=== PATIENT | male | born 1990 | race Caucasian/White ===

== ENCOUNTER 2016-11-06 01:45 | Emergency (ER) | payer SELFPAY ==
[~2016-11-06] VITALS: Ht 180.3 cm; Wt 93.0 kg
[2016-11-06] MEDS ORDERED: ASPIRIN 81 MG CHEW (CHILDREN'S ASA) PO ONE (02:15)
[2016-11-06] MEDS ORDERED: ASPIRIN 81 MG CHEW (CHILDREN'S ASA) ONE (02:16)
--- NOTE | 2016-11-06 02:28 | ED Cardiac General ---
History of Present Illness General Chief Complaint: Respiratory Problems Stated Complaint: POSS ANXIETY ATTACK,SOB,CP,POSS COLD-COUGHING Nursing Triage Note: Pt presents to ED with c/o SOA x 1 hr, pt is tearful in triage, reports he was at the bar [employer], had approx 5 beers and 1 shot, pt states the SOA began while there and he collapsed at bar. Source: patient History of Present Illness Time seen by provider: 02:05 Initial Comments PT ARRIVES VIA POV STATES HE WAS DRINKING AT A BAR [employer] (HAD APPROXIMATELY 10 DRINKS TONIGHT-- WHICH IS NORMAL FOR PATIENT, DRINKS THIS MUCH SEVERAL NIGHTS/WEEK) --STATES ALL OF A SUDDEN HE "DIDN'T FEEL RIGHT" "FELT WEIRD" AND "WHOLE BODY FELT UNCOMFORTABLE", THEN HE HAD A SUDDEN ONSET OF CHEST PAIN ( "LIKE SOMEONE WAS STABBING ME OR PUNCHING ME IN THE CHEST"), STATES THEN HE "COLLAPSED--DROPPED DOWN ON THE GROUND" BUT DID NOT PASS OUT AND NO INJURY, THEN HE STARTED HAVING TROUBLE BREATHING STATES THIS BEGAN APPROXIMATELY 1 1/2 HOURS AGO, AND LASTED APPROXIMATELY AN HOUR--NO CHEST PAIN OR SHORTNESS OF BREATH NOW NO SWEATS + PALPITATIONS--FELT LIKE HIS HEART WAS BEATING HARD AND FAST, BUT NOT NOW NO NAUSEA/VOMITING PT HAS HAD A COUGH FOR THE LAST 4 DAYS, WITH BROWN SPUTUM--STATES OCCURS ONLY IN THE MORNING WHEN HE WAKES UP, THEN NONE FOR THE REST OF THE DAY NO FEVER NO SWELLING IN LEGS/ FEET OR PAIN IN CALVES. NO RECENT TRAVEL, OR PROLONGED SITTING, ETC. NO HISTORY OF SIMILAR PT DENIES USING ANY DRUGS PCP: ENRIQUE IN [facility] Allergies and Home Medications Allergies Coded Allergies: No Known Drug Allergies (Unverified , 11/06/16) Review of Systems Constitutional: see HPI EENTM: No Symptoms Reported Respiratory: See HPI, Cough, Shortness of Air Cardiovascular: See HPI, Chest Pain, Palpitations, Denies Syncope Gastrointestinal: No Symptoms Reported, Denies Abdominal Pain, Denies Nausea, Denies Vomiting Genitourinary: No Symptoms Reported Musculoskeletal: no symptoms reported Skin: no symptoms reported Psychiatric/Neurological: See HPI, Anxiety, Other (CRYING ON ARRIVAL TO ER) Endocrine: No Symptoms Reported Hematologic/Lymphatic: No Symptoms Reported Past Iobjohs-Dlpgao-Gnkzcs Hx Patient Social History Alcohol Use: Regular Use (AT LEAST 10 DRINKS / NIGHT, SEVERAL NIGHTS A WEEK) Recreational Drug Use: Yes (THC) Smoking Status: Current Everyday Smoker (1 PPD) Type Used: Cigarettes 2nd Hand Smoke Exposure: No Recent Foreign Travel: No Contact w/Someone Who Travel: No Recent Infectious Disease Expo: No Immunizations Up To Date Tetanus Booster (TDap): Unknown Seasonal Allergies Seasonal Allergies: No Surgeries HX Surgeries: Yes ([facility] ) Surgeries: Abdominal Respiratory Hx Respiratory Disorders: No Cardiovascular Hx Cardiac Disorders: No Neurological Hx Neurological Disorders: No Reproductive System Sexually Transmitted Disease: No HIV/AIDS: No Genitourinary Hx Genitourinary Disorders: No Gastrointestinal Hx Gastrointestinal Disorders: Yes (INGUINAL HERNIA REPAIR 07/2016) Gastrointestinal Disorders: Abdominal Hernia Musculoskeletal Hx Musculoskeletal Disorders: No Endocrine Hx Endocrine Disorders: No HEENT HX ENT Disorders: No Cancer Hx Cancer: No Psychosocial Hx Psychiatric Problems: No Integumentary HX Skin/Integumentary Disorder: No Blood Transfusions Hx Blood Disorders: No Adverse Reaction to a Blood Tr: No Physical Exam Vital Signs Vital Sign - Last 12Hours 11/06/16 11/06/16 01:55 02:15 Temp 98.7 Pulse 92 Resp 18 B/P (MAP) 153/90 Pulse Ox 97 O2 Delivery Room Air O2 Flow Rate 2.00 Capillary Refill : Less Than 3 Seconds General Appearance: No Apparent Distress, WD/WN, Anxious (SOMEWHAT TEARFUL) HEENT: PERRL/EOMI Neck: Full Range of Motion, Normal Inspection, Non Tender, Supple, No Carotid Bruit, No JVD Respiratory: Chest Non Tender, Normal Breath Sounds, No Accessory Muscle Use, No Respiratory Distress Cardiovascular: No Edema, No Gallop, No JVD, No Murmur, Normal Peripheral Pulses, Tachycardia (MILD) Gastrointestinal: Normal Bowel Sounds, No Organomegaly, No Pulsatile Mass, Non Tender, Soft Extremity: Normal Capillary Refill, Normal Inspection, Normal Range of Motion, Non Tender, No Calf Tenderness, No Pedal Edema Neurologic/Psychiatric: Alert, Oriented x3, No Motor/Sensory Deficits, 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 Norm as Tested Skin: Normal Color, Warm/Dry, No Rash Progress/Results/Core Measures Results/Orders Lab Results Laboratory Tests Test 11/06/16 02:25 11/06/16 02:47 11/06/16 03:05 Range/Units White Blood Count 20.0 H 4.3-11.0 10^3/uL Red Blood Count 5.14 4.35-5.85 10^6/uL Hemoglobin 15.6 13.3-17.7 G/DL Hematocrit 47 40-54 % Mean Corpuscular Volume 91 80-99 FL Mean Corpuscular Hemoglobin 30 25-34 PG Mean Corpuscular Hemoglobin Concent 33 32-36 G/DL Red Cell Distribution Width 12.6 10.0-14.5 % Platelet Count 193 130-400 10^3/uL Mean Platelet Volume 10.7 H 7.4-10.4 FL Neutrophils (%) (Auto) 83 H 42-75 % Lymphocytes (%) (Auto) 10 L 12-44 % Monocytes (%) (Auto) 6 0-12 % Eosinophils (%) (Auto) 1 0-10 % Basophils (%) (Auto) 0 0-10 % Neutrophils # (Auto) 16.6 H 1.8-7.8 X 10^3 Lymphocytes # (Auto) 1.9 1.0-4.0 X 10^3 Monocytes # (Auto) 1.2 H 0.0-1.0 X 10^3 Eosinophils # (Auto) 0.2 0.0-0.3 10^3/uL Basophils # (Auto) 0.0 0.0-0.1 10^3/uL Neutrophils % (Manual) 76 % Lymphocytes % (Manual) 14 % Monocytes % (Manual) 6 % Eosinophils % (Manual) 1 % Basophils % (Manual) 0 % Band Neutrophils 0 % Reactive Lymphocytes 3 % Blood Morphology Comment NORMAL Prothrombin Time 12.6 12.2-14.7 SEC INR Comment 1.0 0.8-1.4 Activated Partial Thromboplast Time 28 24-35 SEC Sodium Level 146 H 135-145 MMOL/L Potassium Level 3.6 3.6-5.0 MMOL/L Chloride Level 112 H 98-107 MMOL/L Carbon Dioxide Level 22 21-32 MMOL/L Anion Gap 12 5-14 MMOL/L Blood Urea Nitrogen 10 7-18 MG/DL Creatinine 0.87 0.60-1.30 MG/DL Estimat Glomerular Filtration Rate > 60 BUN/Creatinine Ratio 11 Glucose Level 106 H 70-105 MG/DL Calcium Level 9.3 8.5-10.1 MG/DL Magnesium Level 2.6 H 1.8-2.4 MG/DL Total Bilirubin 0.3 0.1-1.0 MG/DL Aspartate Amino Transf (AST/SGOT) 34 5-34 U/L Alanine Aminotransferase (ALT/SGPT) 32 0-55 U/L Alkaline Phosphatase 51 40-136 U/L Total Creatine Kinase 422 H 30-200 U/L Creatine Kinase MB 3.5 <6.6 NG/ML Troponin I < 0.30 <0.30 NG/ML B-Type Natriuretic Peptide 11.1 <100.0 PG/ML Total Protein 7.1 6.4-8.2 G/DL Albumin 4.7 H 3.2-4.5 G/DL Serum Alcohol 220 H <10 MG/DL Blood Gas Puncture Site R RAD Blood Gas Patient Temperature 98.7 Arterial Blood pH 7.36 L 7.37-7.43 Arterial Blood Partial Pressure CO2 39 35-45 MMHG Arterial Blood Partial Pressure O2 89 79-93 MMHG Arterial Blood HCO3 22 L 23-27 MMOL/L Arterial Blood Total CO2 22.9 21.0-31.0 MMOL/L Arterial Blood Oxygen Saturation 98 94-100 % Arterial Blood Base Excess -2.8 L -2.5-2.5 MMOL/L Remi Test YES-POS Blood Gas Ventilator Setting NO Blood Gas Inspired Oxygen 2L Urine Color YELLOW Urine Clarity CLEAR Urine pH 7 5-9 Urine Specific [place] 1.010 L 1.016-1.022 Urine Protein NEGATIVE NEGATIVE Urine Glucose (UA) NEGATIVE NEGATIVE Urine Ketones NEGATIVE NEGATIVE Urine Nitrite NEGATIVE NEGATIVE Urine Bilirubin NEGATIVE NEGATIVE Urine Urobilinogen NORMAL NORMAL MG/DL Urine Leukocyte Esterase NEGATIVE NEGATIVE Urine RBC (Auto) NEGATIVE NEGATIVE Urine RBC NONE /HPF Urine WBC NONE /HPF Urine Crystals NONE /LPF Urine Bacteria NEGATIVE /HPF Urine Casts NONE /LPF Urine Mucus NEGATIVE /LPF Urine Culture Indicated NO Urine Opiates Screen POSITIVE H NEGATIVE Urine Oxycodone Screen NEGATIVE NEGATIVE Urine Methadone Screen NEGATIVE NEGATIVE Urine Propoxyphene Screen NEGATIVE NEGATIVE Urine Barbiturates Screen NEGATIVE NEGATIVE Ur Tricyclic Antidepressants Screen NEGATIVE NEGATIVE Urine Phencyclidine Screen NEGATIVE NEGATIVE Urine Amphetamines Screen NEGATIVE NEGATIVE Urine Methamphetamines Screen NEGATIVE NEGATIVE Urine Benzodiazepines Screen NEGATIVE NEGATIVE Urine Cocaine Screen NEGATIVE NEGATIVE Urine Cannabinoids Screen NEGATIVE NEGATIVE Micro Results Microbiology 11/06/16 Influenza Types A,B Antigen (JAYCEE) - Final, Complete My Orders Orders - ARACELI GEORGES DO Saline Lock/Iv-Start (11/06/16 02:15) Ekg Tracing (11/06/16 02:15) O2 (11/06/16 02:15) Monitor-Rhythm Ecg Trace Only (11/06/16 02:15) Alcohol (11/06/16 02:15) Arterial Blood Gas (11/06/16 02:15) BNP (11/06/16 02:15) Cbc With Automated Diff (11/06/16 02:15) Comprehensive Metabolic Panel (11/06/16 02:15) Creatine Kinase (11/06/16 02:15) Creatine Kinase Mb (11/06/16 02:15) Drug Screen Stat (Urine) (11/06/16 02:15) Magnesium (11/06/16 02:15) Protime With Inr (11/06/16 02:15) Partial Thromboplastin Time (11/06/16 02:15) Troponin I (11/06/16 02:15) Ua Culture If Indicated (11/06/16 02:15) Blood Culture (11/06/16 02:15) Influenza A And B Antigens (11/06/16 02:15) Chest Pa/Lat (2 View) (11/06/16 02:15) Aspirin Chewable Tablet (Baby Aspirin Ch (11/06/16 02:15) Aspirin Chewable Tablet (Baby Aspirin Ch (11/06/16 02:16) Ct Angio Chest W (11/06/16 02:20) Manual Differential (11/06/16 02:25) Albuterol/Ipra Inhalation Soln (Duoneb I (11/06/16 04:30) Dexamethasone Injection (Decadron Inject (11/06/16 04:30) Rt Request For Service (11/06/16 04:17) Svn Sm Volume Nebulizer Rt-Rfs (11/06/16 04:17) Methylprednisolone Sod Succ (Solu-Medrol (11/06/16 04:30) Ceftriaxone Injection (Rocephin Injectio (11/06/16 04:30) Ceftriaxone Injection (Rocephin Injectio (11/06/16 04:29) Ns (Ivpb) (Sodium Chloride 0.9% Ivpb Bag (11/06/16 04:30) Dexamethasone Pf Injection (Decadron Pf (11/06/16 04:32) Iohexol Injection (Omnipaque 350 Mg/Ml 1 (11/06/16 04:45) Ns (Ivpb) (Sodium Chloride 0.9% Ivpb Bag (11/06/16 04:45) Medications Given in ED Current Medications Medications Dose Ordered Sig/Marian Route Start Time Stop Time Status Last Admin Dose Admin Albuterol/ Ipratropium 3 ml ONCE ONCE INH 11/06/16 04:30 11/06/16 04:31 UNV 11/06/16 04:38 3 ML Aspirin 324 mg ONCE ONCE PO 11/06/16 02:15 11/06/16 02:20 DC 11/06/16 02:21 324 MG Ceftriaxone Sodium 1000 mg/ Sodium Chloride 50 ml @ 100 mls/hr ONCE ONCE IV 11/06/16 04:30 11/06/16 04:59 UNV 11/06/16 04:35 100 MLS/HR Dexamethasone Sodium Phosphate 10 mg STK-MED ONCE .ROUTE 11/06/16 04:32 11/06/16 04:36 DC 11/06/16 04:39 20 MG Iohexol 150 ml ONCE ONCE IV 11/06/16 04:45 11/06/16 04:46 DC 11/06/16 04:45 125 ML Methylprednisolone Sodium Succinate 125 mg ONCE ONCE IVP 11/06/16 04:30 11/06/16 04:31 UNV 11/06/16 04:35 125 MG Sodium Chloride 100 ml ONCE ONCE IV 11/06/16 04:45 11/06/16 04:46 DC 11/06/16 04:45 80 ML Vital Signs/I&O Vital Sign - Last 12Hours 11/06/16 11/06/16 11/06/16 01:55 02:15 04:41 Temp 98.7 Pulse 92 Resp 18 B/P (MAP) 153/90 Pulse Ox 97 97 99 O2 Delivery Room Air Nasal Cannula O2 Flow Rate 2.00 2.00 Blood Pressure Mean: 111 Progress Note : Progress Note O2 SATS DROP TO 86-87% ON ROOM AIR DURING EXAM--PLACED ON O2 AT 2L/NC AND SATS UP TO 99% UNEVENTFUL ER STAY--ASYMPTOMATIC FOR REMAINDER OF ER STAY PT GIVEN NEBULIZER TREATMENT, WITH INCREASED AERATION NOTED POST TREATMENT. STATES HE FEELS LIKE HE CAN TAKE A DEEPER BREATH AFTER NEB TX. REMOVED O2 AND SATS STAYED 97-99% ON ROOM AIR FOR REMAINDER OF ER STAY ECG Initial ECG Impression Time: 02:22 Initial ECG Rate: 1-1 Initial ECG Rhythm: Normal Sinus Initial ECG Impression: Nonspecific Changes Initial ECG Comparisson: No Previous ECG Available Diagnostic Imaging Comments CXR--NO ACUTE PROCESS, PENDING RADIOLOGIST REVIEW CT CHEST ANGIOGRAM--NO P.E., NON-SPECIFIC FINDINGS OF MINIMAL/SUBTLE GROUND GLASS OPACITIES IN BILATERAL LUNGS PERIPHERALLY. PER [facility] VIA FAX @ [phone] Reviewed: Reviewed by Me Departure Impression Impression: Primary Impression: BRONCHITIS WITH HYPOXIA Additional Impressions: Alcohol intoxication Leukocytosis TRANSIENT CHEST PAIN AND DYSPNEA ACTIVE SMOKER Disposition: HOME, SELF-CARE Condition: Improved Departure-Patient Inst. Referrals: NO,LOCAL PHYSICIAN (PCP) Primary Care Physician Patient Instructions: Acute Bronchitis, Adult (DC), Quitting Smoking for Teens and Young Adults, Smoking: Not Just Harmful to Your Lungs and Heart Add. Discharge Instructions: [facility] DM FOR COUGH TYLENOL AND MOTRIN NEEDED FOR PAIN OR FEVER LOTS OF CLEAR LIQUIDS--NO ALCOHOL NO SMOKING FOLLOW UP WITH DRJeanmarie OF [facility] IN 2-3 DAYS FOR FURTHER CARE RETURN TO ER IF WORSE All discharge instructions reviewed with patient and/or family. Voiced understanding. Scripts Methylprednisolone (Medrol) 4 Mg Tab.ds.pk 4 MG PO UD, #1 PKG Prov: ARACELI GEORGES DO 11/06/16 Cefdinir (Cefdinir) 300 Mg Capsule 300 MG PO BID for FOR INFECTION, #20 CAP Prov: ARACELI GEORGES DO 11/06/16 Albuterol Sulfate (PROAIR HFA) 1 Puff Puff 2 PUFF IH Q4H for BREATHING, #1 GM Prov: ARACELI GEORGES DO 11/06/16 ARACELI GEORGES DO Nov 06, 2016 02:28
[2016-11-06 02:32] LABS: BASOPHILS % (AUTO) 0 % (0-10); EOSINOPHILS # (AUTO) 0.2 10^3/uL (0.0-0.3); EOSINOPHILS % (AUTO) 1 % (0-10); LYMPHOCYTES # (AUTO) 1.9 X 10^3 (1.0-4.0); LYMPHOCYTES % (AUTO) 10 % (12-44); MEAN CORPUSCULAR HEMOGLOBIN 30 PG (25-34); MEAN CORPUSCULAR HGB CONC 33 G/DL (32-36); MEAN CORPUSCULAR VOLUME 91 FL (80-99); MEAN PLATELET VOLUME 10.7 FL (7.4-10.4); MONOCYTES # (AUTO) 1.2 X 10^3 (0.0-1.0); MONOCYTES % (AUTO) 6 % (0-12); NEUTROPHILS # (AUTO) 16.6 X 10^3 (1.8-7.8); NEUTROPHILS % (AUTO) 83 % (42-75); PLATELET COUNT 193 10^3/uL (130-400); RED BLOOD COUNT 5.14 10^6/uL (4.35-5.85); RED CELL DISTRIBUTION WIDTH 12.6 % (10.0-14.5)
[2016-11-06 02:45] LABS: PROTHROMBIN TIME PATIENT 12.6 SEC (12.2-14.7)
[2016-11-06 02:51] LABS: BAND NEUTROPHILS 0 %; BASOPHILS % (MANUAL) 0 %; EOSINOPHILS % (MANUAL) 1 %; LYMPHOCYTES % (MANUAL) 14 %; NEUTROPHILS % (MANUAL) 76 %; REACTIVE LYMPHOCYTES 3 %
[2016-11-06 02:56] LABS: ABG BASE EXCESS -2.8 MMOL/L (-2.5-2.5); ABG HCO3 22 MMOL/L (23-27); ABG OXYGEN SATURATION 98 % (94-100); ABG PCO2 39 MMHG (35-45); ABG PH 7.36 (7.37-7.43); ABG PO2 89 MMHG (79-93); ABG TCO2 22.9 MMOL/L (21.0-31.0)
[2016-11-06 02:57] LABS: ALANINE AMINOTRANSFERASE 32 U/L (0-55); ALBUMIN 4.7 G/DL (3.2-4.5); ALCOHOL 220 MG/DL (<10); ANION GAP 12 MMOL/L (5-14); ASPARTATE AMINO TRANSFERASE 34 U/L (5-34); BILIRUBIN,TOTAL 0.3 MG/DL (0.1-1.0); BLOOD UREA NITROGEN 10 MG/DL (7-18); BUN/CREATININE RATIO 11; CALCIUM 9.3 MG/DL (8.5-10.1); CARBON DIOXIDE 22 MMOL/L (21-32); CHLORIDE 112 MMOL/L (98-107); CREATINE KINASE 422 U/L (30-200); CREATININE SERUM 0.87 MG/DL (0.60-1.30); GFR ESTIMATED > 60; GLUCOSE 106 MG/DL (70-105); MAGNESIUM 2.6 MG/DL (1.8-2.4); POTASSIUM 3.6 MMOL/L (3.6-5.0); SODIUM 146 MMOL/L (135-145); TOTAL PROTEIN 7.1 G/DL (6.4-8.2)
[2016-11-06 02:57] LABS: ALLENS TEST YES-POS; PATIENT TEMP 98.7
[2016-11-06 03:04] LABS: TROPONIN I < 0.30 NG/ML (<0.30)
[2016-11-06 03:12] LABS: BILIRUBIN,URINE NEGATIVE (NEGATIVE); KETONES,URINE NEGATIVE (NEGATIVE); LEUKOCYTE ESTERASE ,URINE NEGATIVE (NEGATIVE); NITRITE,URINE NEGATIVE (NEGATIVE); PH,URINE 7 (5-9); PROTEIN,URINE NEGATIVE (NEGATIVE); UROBILINOGEN,URINE NORMAL (NORMAL)
[2016-11-06] MEDS ORDERED: cefTRIAXone 1 GM (ROCEPHIN) VIAL ONE (04:29)
[2016-11-06] MEDS ORDERED: NS (IVPB) 50 ML ONE (04:30)
[2016-11-06] MEDS ORDERED: cefTRIAXone INJECTION 1,000 MG in NS (IVPB) 50 ML IV ONE (04:30)
[2016-11-06] MEDS ORDERED: methylPREDNISolone 125 MG (Solu-MEDROL) VIAL IVP ONE (04:30)
[2016-11-06] MEDS ORDERED: RT-ALBUTEROL/IPRATROPIUM 3 ML (DUONEB) VIAL INH ONE (04:30)
[2016-11-06] MEDS ORDERED: DEXAMETHASONE 4 MG/ML SDV (DECADRON) IH ONE (04:30)
[2016-11-06] MEDS ORDERED: DEXAMETHASONE PF 10 MG/ML (DECADRON) VIAL ONE (04:32)
[2016-11-06] MEDS ORDERED: IOHEXOL 350 MG/ML 150 ML (OMNIPAQUE 350) VIAL IV ONE (04:45)
[2016-11-06] MEDS ORDERED: NS 100 ML (IVPB) BAG IV ONE (04:45)
[2016-11-06] MEDS ORDERED: METH4TAB PO (05:11)
[2016-11-06] MEDS ORDERED: CEFD300C3 PO (05:11)
[2016-11-06] MEDS ORDERED: RT-ALBUINH IH (05:11)
[2016-11-06 05:58] VITALS: BP 143/70
--- NOTE | 2016-11-06 06:54 | Diagnostic Imaging Report ---
PROCEDURE: CT angiography of the chest with contrast. TECHNIQUE: Multiple contiguous axial images were obtained through the chest after uneventful bolus administration of intravenous contrast. Reconstructed CTA MIP acquisitions were also performed. INDICATION: Shortness of breath and syncope. FINDINGS: There are scattered small nonspecific areas of groundglass infiltrates in the lungs bilaterally. There is no pleural or pericardial fluid. There is no pneumothorax. The heart size is normal. Thoracic aorta is normal in caliber without evidence of dissection. There is no pathologically enlarged adenopathy in the chest. There are no filling defects seen within the pulmonary arteries to suggest pulmonary embolism. The visualized intra-abdominal structures are unremarkable. The osseous structures are unremarkable. IMPRESSION: No evidence of pulmonary embolism or aortic dissection. Scattered small areas of groundglass opacities in the lungs bilaterally particularly in the periphery. This is nonspecific, however, may reflect some air trapping, atypical pneumonia or less likely edema. Recommend clinical correlation. No other acute abnormality in the chest Dictated by: Dictated on workstation # [id number]
--- NOTE | 2016-11-06 07:21 | Diagnostic Imaging Report ---
INDICATION: Shortness of breath. PA and lateral views of chest were obtained. FINDINGS: The heart size, mediastinal configuration, and pulmonary vascularity are within normal limits. There is no pleural effusion, pneumothorax, or pneumonia. The osseous structures are unremarkable. IMPRESSION: No acute cardiopulmonary abnormality. Dictated by: Dictated on workstation # [id number]
== END 2016-11-06 05:17 | disposition home or self-care (01) ==
LOC: EDUNIT# 01:45 → ER 01:48
DX: J20.9 Acute bronchitis, unspecified (principal); R09.02 Hypoxemia; F10.129 Alcohol abuse with intoxication, unspecified; F17.210 Nicotine dependence, cigarettes, uncomplicated; Y90.7 Blood alcohol level of 200-239 mg/100 ml; D72.829 Elevated white blood cell count, unspecified
CPT/HCPCS: 36415; 71020; 71275; 80053; 80306; 80320; 81000; 82550; 82553; 82805; 83735; 83880; 84484; 85007; 85027; 85610; 85730; 87040; 87804; 93005; 93041; 94640; 96365; 96375